=== PATIENT | male | born 1960 | race Caucasian/White ===

== ENCOUNTER 2017-12-01 19:34 | Observation (INO) | payer OTHER, MEDICARE ==
[2017-12-01 19:36] VITALS: BP 133/79; PULSE 71; RESP 20; TEMP 97.8; O2SAT 94
[2017-12-01] MEDS ORDERED: SODIUM CHLOR 0.9% 1000 ML INJ 1,000 ML IV SCH (20:00)
[2017-12-01] MEDS ORDERED: ASPIRIN 81 MG CHEW TAB PO ONE (20:00)
[2017-12-01] MEDS ORDERED: SODIUM CHLORIDE 0.9% FLUSH 10 ML FLUSH IVF PRN (20:00)
[2017-12-01 20:08] VITALS: PULSE 67; RESP 22; O2SAT 95
--- NOTE | 2017-12-01 20:09 | PD ---
HPI Chief Complaint: Chest Pain Time Seen by Provider: 20:00 Travel History International Travel<30 days: No Contact w/Intl Traveler<30days: No Traveled to known affect area: No History of Present Illness HPI 57-year-old male presents to the emergency department for 3-4 days of retrosternal chest pressure and tightness radiating into the shoulders. Patient denies fever chills nausea vomiting shortness of breath referred neck jaw back shoulder arm pain. Patient denies personal history of hypertension dyslipidemia diabetes tobaccoism but does report a family history of heart disease. Patient reportedly has had nitroglycerin the past and underwent a stress test but was unable to complete a stress test in the shortness of breath and was referred for a nuclear stress test but never had this performed. Patient was told by his primary care provider that he had angina need to come to the emergency room to be evaluated. Patient rates his current discomfort 7/ 10 in intensity. Patient reportedly took aspirin sometime around 4 PM today. Patient denies any long distance travel protracted bedrest surgical procedure coagulopathy large joint pain or swelling. Patient also has history of anxiety depression and recently had his medications adjusted. [facility] Past Medical History Narrative Medical CVA anxiety ependymoma excision; tobacco use; FH MS; nursing notes reviewed Arthritis: No Autoimmune Disease: No Blood Disorders: No Cancer: Yes Chemotherapy: No Cerebrovascular Accident: Yes Kidney Stones: No Psychiatric: No Radiation Therapy: Yes (1988) Renal Failure: No Seizures: No Thyroid Disease: No Past Surgical History AICD: No Pacemaker: No Social History Alcohol Use: No Tobacco Use: Yes Substance Use: No Allergies-Medications (Allergen,Severity, Reaction): Coded Allergies: codeine (Unverified Allergy, Severe, Hives, 06/15/17) penicillin G (Unverified Allergy, Severe, Hives, 06/15/17) Sulfa (Sulfonamide Antibiotics) (Verified Allergy, Unknown, 12/01/17) acetaminophen (Verified Allergy, Unknown, 12/01/17) Reported Meds & Prescriptions Reported Meds & Active Scripts Active Review of Systems Except as stated in HPI: all other systems reviewed are Neg Physical Exam Narrative GENERAL: Well-developed anxious-appearing male in no acute respiratory distress ; GCS 15 SKIN: Warm and dry. HEAD: Normocephalic. EYES: No scleral icterus. No injection or drainage. NECK: Supple, trachea midline. No JVD or lymphadenopathy. CARDIOVASCULAR: Regular rate and rhythm without murmurs, gallops, or rubs. Radial pulses 2+ to palpation dorsalis pedis pulses 2+ to palpation RESPIRATORY: Breath sounds equal bilaterally. No accessory muscle use. GASTROINTESTINAL: Abdomen soft, non-tender, nondistended. MUSCULOSKELETAL: No cyanosis, or edema. BACK: Nontender without obvious deformity. No CVA tenderness. Data Data Last Documented VS Vital Signs Date Time Temp Pulse Resp B/P (MAP) Pulse Ox O2 Delivery O2 Flow Rate FiO2 12/01/17 20:02 68 22 98 Room Air 12/01/17 19:36 97.8 133/79 (97) Orders Orders Electrocardiogram (12/01/17 20:00) Basic Metabolic Panel (Bmp) (12/01/17 20:00) Ckmb (Isoenzyme) Profile (12/01/17 20:00) Complete Blood Count With Diff (12/01/17 20:00) Magnesium (Mg) (12/01/17 20:00) Prothrombin Time / Inr (Pt) (12/01/17 20:00) Act Partial Throm Time (Ptt) (12/01/17 20:00) Troponin I (12/01/17 20:00) Chest, Single Ap (12/01/17 20:00) Ecg Monitoring (12/01/17 20:00) Bilateral Bp Monitoring (12/01/17 20:00) Iv Access Insert/Monitor (12/01/17 20:00) Oximetry (12/01/17 20:00) Oxygen Administration (12/01/17 20:00) Aspirin Chew (Aspirin Chew) (12/01/17 20:00) Sodium Chloride 0.9% Flush (Ns Flush) (12/01/17 20:00) Nitroglycerin Sl (Nitrostat Sl) (12/01/17 20:00) Sodium Chlor 0.9% 1000 Ml Inj (Ns 1000 M (12/01/17 20:00) MDM Medical Decision Making Medical Screen Exam Complete: Yes Emergency Medical Condition: Yes Medical Record Reviewed: Yes Interpretation(s) EKG: Normal sinus rhythm rate 68 right ventricular conduction delay QS inferiorly age-indeterminate no acute ST elevation or injury pattern Differential Diagnosis Chest pain ACS MS PE dissection costochondritis gastritis cholecystitis pancreatitis Narrative Course 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
[2017-12-01] MEDS: NITROGLYCERIN 0.4 MG SL 25 TABS/BTL SL SCH ×3 (20:20→20:44)
[2017-12-01 20:30] VITALS: BP_SYST 120; BP_SYST 124; BP_DIAS 67; BP_DIAS 74; PULSE 68; RESP 20; O2SAT 98
[2017-12-01] MEDS ORDERED: PAXI30TA7 PO ×2 (20:32)
[2017-12-01] MEDS ORDERED: TAMS0.4C4 PO (20:32)
[2017-12-01] MEDS ORDERED: BUSP5TAB PO (20:32)
--- NOTE | 2017-12-01 20:41 | RADRPT ---
EXAM DATE/TIME: 12/01/2017 20:17 [facility] COMPARISON: No previous studies available for comparison. INDICATIONS : Chest pain. MEDICAL HISTORY : None. SURGICAL HISTORY : None. ENCOUNTER: Initial ACUITY: 1 day PAIN SCORE: 5/10 LOCATION: Bilateral chest FINDINGS: Discoid atelectasis and/or scarring is noted within the left lung base. The right lung is clear. The heart is normal. The pulmonary vascular pattern is normal. CONCLUSION: Discoid atelectasis and/or fibrotic scarring within the left lung base. Pedro Gatica MD on December 01, 2017 at 20:37 Board Certified Radiologist. This report was verified electronically.
[2017-12-01 20:56] LABS: BASOPHIL % 0.5 % (0.0-2.0); EOSINOPHIL # 0.4 TH/MM3 (0-0.4); HEMATOCRIT 38.9 % (39.0-51.0); HEMOGLOBIN 13.5 GM/DL (13.0-17.0); LYMPHOCYTE # 1.6 TH/MM3 (1.0-4.8); MEAN CELL VOLUME 94.4 FL (80.0-100.0); MEAN CORPUSCULAR HEMOGLOBIN 32.7 PG (27.0-34.0); MEAN CORPUSCULAR HGB CONC 34.6 % (32.0-36.0); MEAN PLATELET VOLUME 8.6 FL (7.0-11.0); MONO % 9.2 % (0.0-8.0); MONOCYTE # 0.7 TH/MM3 (0-0.9); NEUT % 64.3 % (16.0-70.0); PLATELET COUNT 242 TH/MM3 (150-450); RED BLOOD COUNT 4.13 MIL/MM3 (4.50-5.90); RED CELL DISTRIBUTION WIDTH 13.5 % (11.6-17.2); WHITE BLOOD COUNT 7.7 TH/MM3 (4.0-11.0)
[2017-12-01 21:09] LABS: PROTHROMBIN TIME - PATIENT 9.8 SEC (9.8-11.6)
[2017-12-01 21:10] LABS: BICARBONATE 27.4 MEQ/L (21.0-32.0); BLOOD UREA NITROGEN 21 MG/DL (7-18); CALCIUM 8.6 MG/DL (8.5-10.1); CHLORIDE 106 MEQ/L (98-107); CREATININE 1.18 MG/DL (0.60-1.30); GLOMERULAR FILTRATION RATE 63 ML/MIN (>89); GLUCOSE,RANDOM 99 MG/DL (74-106); MAGNESIUM 2.1 MG/DL (1.5-2.5); SODIUM (NA) 140 MEQ/L (136-145)
--- NOTE | 2017-12-01 21:10 | EKG ---
Date Performed: 12/01/2017 Time Performed: 19:55:53 PTAGE: 57 years EKG: Sinus rhythm POSSIBLE RIGHT VENTRICULAR CONDUCTION DELAY possible INFERIOR MYOCARDIAL INFARCTION ABNORMAL ECG NO PREVIOUS TRACING DOCTOR: Pepito Bloom Interpretating Date/Time 12/01/2017 21:09:49
[2017-12-01 21:13] LABS: TROPONIN I LESS THAN 0.02 NG/ML (0.02-0.05)
[2017-12-01] MEDS ORDERED: SODIUM CHLORIDE 0.9% FLUSH 10 ML FLUSH IV FLUSH PRN (21:45)
[2017-12-01] MEDS ORDERED: KETOROLAC TROMETHAMINE 30 MG/ML (IVP) VIAL IV PUSH ONE (21:45)
[2017-12-01] MEDS ORDERED: ALPRAZolam 0.25 MG TAB PO PRN (21:45)
[2017-12-01 22:00] VITALS: BP 117/71; PULSE 76; RESP 20; O2SAT 96
[2017-12-01] MEDS ORDERED: sleeping pill (22:25)
[2017-12-02] MEDS ORDERED: SODIUM CHLORIDE 0.9% FLUSH 10 ML FLUSH IV FLUSH SCH (09:00)
== END 2017-12-01 23:34 | disposition left against medical advice (07) ==
LOC: NEPC 19:34 → NEDA 21:45 → NEPHCDU 23:10
PROVIDERS: ADMIT Internal Medicine Cardiovascular Disease; ATTEND Internal Medicine Cardiovascular Disease
DX: R07.89 Other chest pain (principal); I10 Essential (primary) hypertension; R94.31 Abnormal electrocardiogram [ECG] [EKG]; Z72.0 Tobacco use; Z79.82 Long term (current) use of aspirin; Z85.841 Personal history of malignant neoplasm of brain; Z86.73 Personal history of transient ischemic attack (TIA), and cerebral infarction without residual deficits; Z82.49 Family history of ischemic heart disease and other diseases of the circulatory system
CPT/HCPCS: 71045; 80048; 82550; 83735; 84484; 85025; 85610; 85730; 93005; 96361; 96374; 99285; G0378; J1885; J7030